=== PATIENT | male | born 1975 | race Two or more races ===

== ENCOUNTER 2020-04-09 13:57 | Emergency (ER) | payer MEDICAID ==
[~2020-04-09] VITALS: Ht 160 cm; Wt 79.4 kg
--- NOTE | 2020-04-09 14:10 | NUR ---
pt bib self c/o "have an insect bite on knuckle of left index. Swollen/red/painful 09/23. vs checked. stable.
[2020-04-09] MEDS ORDERED: ONDANSETRON 4 MG TAB.RAPDIS SL ONE (14:30)
[2020-04-09] MEDS ORDERED: HYDROCODONE/APAP 5/325MG TABLET PO ONE (14:30)
[2020-04-09] MEDS ORDERED: IBUPROFEN 600 MG TABLET PO ONE (14:30)
[2020-04-09] MEDS ORDERED: LIDOCAINE 1% INJ 50 ML MDV IJ ONE (14:30)
[2020-04-09] MEDS ORDERED: LIDOCAINE HCL/MPF 1% 30 ML VIAL IJ ONE (14:39)
[2020-04-09] MEDS ORDERED: ONDANSETRON 4 MG TAB.RAPDIS ONE (14:39)
[2020-04-09] MEDS ORDERED: HYDROCODONE/APAP 5/325MG TABLET ONE (14:39)
[2020-04-09] MEDS ORDERED: IBUPROFEN 600 MG TABLET ONE (14:39)
[2020-04-09] MEDS ORDERED: AMOX/CLAVULANATE 875 MG TABLET PO ONE (15:00)
[2020-04-09] MEDS ORDERED: AMOX/CLAVULANATE 875 MG TABLET ONE (16:00)
[2020-04-09] MEDS ORDERED: SULFAMETH/TRIMETH 800/160 MG 1 UDTAB TABLET ONE (16:53)
--- NOTE | 2020-04-09 16:56 | NUR ---
I&D done. provided w wound care. discharge dionne in stable condition.
[2020-04-09 16:58] VITALS: BP 145/92
[2020-04-09] MEDS ORDERED: SULFAMETH/TRIMETH 800/160 MG 1 UDTAB TABLET PO ONE (17:00)
== END 2020-04-09 16:58 | disposition home or self-care (01) ==
LOC: ER 14:02
DX: L03.012 Cellulitis of left finger (principal); Z98.890 Other specified postprocedural states
CPT/HCPCS: 26010; 73140; 99284; A6407; J3490; Q0162

== ENCOUNTER 2023-07-31 18:50 | Emergency (ER) | payer MEDICAID ==
[~2023-07-31] VITALS: Ht 160 cm; Wt 79.4 kg
[2023-07-31 19:32] VITALS: TEMP 98.5
[2023-07-31 20:04] LABS: BASOPHILS % (AUTO) 0.6 % (0.0-2.0); EOSINOPHILS # (AUTO) 0.3 K/uL (0.0-0.7); EOSINOPHILS % (AUTO) 5.1 % (0.0-6.0); HEMATOCRIT 40 % (39-51); HEMOGLOBIN 13.5 g/dL (13.5-17.5); LYMPHOCYTES # (AUTO) 2.2 K/uL (0.8-4.8); LYMPHOCYTES % (AUTO) 32.5 % (20.0-44.0); MEAN CORPUSCULAR HEMOGLOBIN 28 PG (26.0-33.0); MEAN CORPUSCULAR HGB CONC 34 g/dl (31.0-36.0); MEAN CORPUSCULAR VOLUME 84 fL (80-96); MONOCYTES # (AUTO) 0.6 K/uL (0.1-1.30); MONOCYTES % (AUTO) 8.9 % (2.0-12.0); NEUTROPHILS # (AUTO) 3.6 K/uL (1.8-8.9); NEUTROPHILS % (AUTO) 52.9 % (43.0-81.0); PLATELET COUNT (AUTO) 317 K/uL (150-450); RED BLOOD CELL COUNT(AUTO) 4.79 MIL/uL (4.5-6.0); RED CELL DISTRIBUTION WIDTH 14.5 % (11.5-15.0); WHITE BLOOD COUNT (AUTO) 6.8 K/uL (4.3-11.0)
[2023-07-31 20:18] LABS: CALCIUM, SERUM 8.7 mg/dL (8.5-10.1); CARBON DIOXIDE 29 mmol/L (21-32); CHLORIDE 103 mmol/L (98-107); CREATININE 1.1 mg/dL (0.6-1.3); GLUCOSE 82 mg/dL (74-106); POTASSIUM 4.1 mmol/L (3.5-5.1); SODIUM SERUM 139 mmol/L (136-145); UREA NITROGEN, BLOOD 16 mg/dL (7-18)
[2023-07-31 20:45] LABS: INR 0.94 (0.91-1.10); PARTIAL THROMBOPLASTIN TIME 27.8 SEC (24.3-34.3)
[2023-07-31 21:06] VITALS: BP 146/91; O2SAT 99
[2023-07-31 21:57] LABS: APPEARANCE,URINE SLIGHTLY CLOUDY (CLEAR); BILIRUBIN,URINE NEGATIVE (NEGATIVE); BLOOD, URINE NEGATIVE Ery/uL (NEGATIVE); COLOR,URINE YELLOW (YELLOW); KETONES,URINE NEGATIVE (NEGATIVE); LEUKOCYTE ESTERASE ,URINE NEGATIVE (NEGATIVE); NITRITE, URINE NEGATIVE (NEGATIVE); PROTEIN,URINE NEGATIVE (NEGATIVE); UGLUCOSE NEGATIVE (NEGATIVE); UROBILINOGEN,URINE 0.2 EU/dL (0.2)
[2023-07-31 22:11] LABS: RBC,URINE 0-2 /HPF (0-2); WBC,URINE 0-2 /HPF (0-3)
[2023-07-31 22:12] LABS: ADD URINE CULTURE NO; BACTERIA,URINE None seen /HPF (None Seen); SQUAMOUS EPITHELIAL CELL,UR 0-2 /HPF (None Seen); URINE AMORPHOUS PHOSPHATES Moderate /HPF (None Seen)
== END 2023-07-31 23:50 | disposition left against medical advice (07) ==
LOC: ER 18:55
DX: M25.512 Pain in left shoulder (principal); R06.02 Shortness of breath
CPT/HCPCS: 36415; 71045-TC; 73030-TC; 80048-TC; 81001; 84484-TC; 85025-TC; 85730-TC